=== PATIENT | female | born 1970 | race Caucasian/White ===

== ENCOUNTER 2021-05-08 13:43 | Observation (INO) ==
[2021-05-08] MEDS ORDERED: CeFAZolin Syr 2,000MG/20 ML 2,000 MG/20 ML SYRINGE IVPB ONE (14:09)
[2021-05-08] MEDS ORDERED: Ringers Solution, Lactated 1,000 ML IVC SCH (14:15)
[2021-05-08] MEDS ORDERED: Ondansetron 4 MG/2 ML VIAL ONE (14:36)
[2021-05-08] MEDS ORDERED: Lidocaine -MPF 2% 2 ML VIAL ONE (14:36)
[2021-05-08] MEDS ORDERED: *HR* Propofol 200 MG/20 ML VIAL IVP ONE (14:37)
[2021-05-08] MEDS ORDERED: *HR* FentaNYL (PF) 100 MCG/2 ML VIAL ONE (14:37)
[2021-05-08] MEDS ORDERED: *HR* Midazolam HCl 2 MG/2 ML VIAL ONE (14:37)
[2021-05-08] MEDS ORDERED: Bupivacaine 0.5%-Epi 1:200,000 50 ML VIAL ONE (14:42)
[2021-05-08] MEDS ORDERED: Pregabalin 75 MG CAPSULE PO ONE (14:44)
[2021-05-08] MEDS ORDERED: Scopolamine Patch 1.5 MG PATCH.TD72 TD ONE (14:44)
[2021-05-08] MEDS ORDERED: *HR* OxyCODONE Immed Rel 5 MG TABLET PO PRN (14:44)
[2021-05-08] MEDS ORDERED: Acetaminophen IV 1,000 MG/100 ML BAG IVPB ONE ×2 (14:44→14:47)
[2021-05-08] MEDS ORDERED: *HR* Labetalol 20 MG/4 ML SYRINGE IVP PRN (14:44)
[2021-05-08] MEDS ORDERED: Famotidine 20 MG/2 ML VIAL IVP ONE (14:44)
[2021-05-08] MEDS: *HR* HYDROmorphone PF 0.5 MG/0.5 ML SYRINGE IVP PRN ×4 (16:13→16:43)
[2021-05-08] MEDS ORDERED: Ondansetron 4 MG/2 ML VIAL IVP ONE (18:18)
[2021-05-08] MEDS ORDERED: Ketorolac 30 MG/ML VIAL IVP ONE (19:38)
[2021-05-09] MEDS ORDERED: Ondansetron 4 MG/2 ML VIAL IVP PRN (02:25)
[2021-05-09] MEDS ORDERED: Naloxone 0.4 MG/ML INJ IVP PRN (02:25)
[2021-05-09] MEDS ORDERED: Acetaminophen 325 MG TABLET PO PRN (02:25)
[2021-05-09] MEDS ORDERED: tiZANidine 4 MG TABLET PO PRN (02:54)
[2021-05-09] MEDS ORDERED: hydrALAZINE 10 MG TABLET PO PRN (03:14)
[2021-05-09] MEDS ORDERED: *HR* LORazepam 1 MG TABLET PO PRN (03:25)
[2021-05-09] MEDS ORDERED: *HR* OxyCODONE/APAP 5/325 TABLET PO PRN (03:26)
[2021-05-09] MEDS ORDERED: Acetaminophen/Butalbital/CaffeineTABLET PO PRN (03:26)
[2021-05-09 07:06] LABS: Hematocrit 35.1 % (35.3-44.9); Hemoglobin 11.4 g/dL (11.5-15.4); Mean Corpuscular HGB Conc 32.5 g/dL (31.6-35.5); Mean Corpuscular Hemoglobin 28.4 pg (28.0-33.3); Mean Corpuscular Volume 87.3 fL (83.0-100.0); Platelet Count 248 K/mcL (140-400); Red Blood Count 4.02 M/mcL (3.82-4.97); Red Cell Distribution Width 12.8 % (11.5-14.5); White Blood Count 6.9 K/mcL (4.3-11.1)
[2021-05-09 07:25] LABS: BUN/Creatinine Ratio 19 (6-26); Blood Urea Nitrogen 15 mg/dL (6-20); Calcium 9.3 mg/dL (8.6-10.3); Carbon Dioxide 25 mEq/L (23-29); Chloride 104 mEq/L (98-107); Chol/HDL Ratio 5.6 (0-4.9); Glucose 86 mg/dL (70-105); Magnesium 1.8 mg/dL (1.6-2.6); Osmolality,Calculated 286 (280-300); Potassium 4.2 mEq/L (3.5-5.1); Sodium 138 mEq/L (136-145); eGFR For African Americans > 60 (> 60); eGFR For Non-African Americans > 60 (> 60)
[2021-05-09] MEDS ORDERED: (Ezetimibe [Zetia] 10 MG Tablet) PO SCH (09:00)
[2021-05-09 11:10] VITALS: BP 173/90; PULSE 71; TEMP 98; O2SAT 97
== END 2021-05-09 11:41 | disposition home or self-care (01) ==
LOC: 3NENU 13:43 → SAMDAY 13:43 → SUATTDRO 22:10
PROVIDERS: ADMIT Student in an Organized Health Care Education/Training Program; ATTEND Orthopaedic Surgery Hand Surgery